=== PATIENT | female | born 1970 | race Caucasian/White ===

== ENCOUNTER 2025-04-01 11:48 | Inpatient (IN) | payer MEDICARE, SELFPAY ==
[2025-04-01 12:22] LABS: #Basophils 0.03 10x3/uL (0.0-0.2); #Eosinophils 0.11 10x3/uL (0.0-0.5); #Monocytes 0.66 10x3/uL (0.0-1.1); #Neutrophils 5.68 10x3/uL (1.5-8.4); %Basophils 0.3 % (0.0-2.0); %Eosinophils 1.2 % (0.0-6.0); %Lymphocytes 28.2 % (18.0-47.0); %Monocytes 7.3 % (0.0-10.0); %Neutrophils 62.7 % (40.0-75.0); Hematocrit 42.7 % (34.9-44.5); Hemoglobin 13.6 g/dL (12.0-15.5); Mean Corpuscular Hemoglobin 27.4 pg (27.0-33.0); Mean Corpuscular Volume 85.9 fL (81.6-98.3); Platelet Count 308 10x3/uL (150-450); Red Blood Cell (RBC) Count 4.97 10x6/uL (3.90-5.03); White Blood Cell (WBC) Count 9.07 10x3/uL (3.5-10.5)
[2025-04-01 12:43] LABS: Troponin I 0.031 ng/mL (< 0.028)
[2025-04-01 12:46] LABS: ALT (SGPT) 45 U/L (Less than 34); AST (SGOT) 44 U/L (11-34); Albumin 3.7 g/dL (3.1-4.5); Alkaline Phosphatase 107 U/L (40-110); Anion Gap 13 mmol/L (10-20); BUN (Urea Nitrogen) 16 mg/dL (9.8-20.1); Bilirubin, Total 0.3 mg/dL (0.3-1.2); Calc. Creatinine Clearance 0 mL/min (70-130); Calcium 8.9 mg/dL (7.8-10.44); Carbon Dioxide 25 mmol/L (22-29); Chloride 109 mmol/L (98-107); Globulin 3.4 g/dL (2.4-3.5); Glucose 101 mg/dL (70-105); Lipase 33 U/L (8-78); Potassium 3.9 mmol/L (3.5-5.1); Sodium 143 mmol/L (136-145)
[2025-04-01] MEDS ORDERED: Furosemide 40 MG (4 mL) VIAL ONE (13:57)
[2025-04-01] MEDS ORDERED: Calcium Carbonate 500 MG ChewTAB PO PRN (14:26)
[2025-04-01] MEDS ORDERED: Melatonin 3 MG TAB PO PRN (14:26)
[2025-04-01] MEDS ORDERED: Ondansetron PF 4 MG/2 ML Vial IVP PRN (14:26)
[2025-04-01] MEDS ORDERED: Senokot S 8.6-50 MG TAB PO PRN (14:26)
[2025-04-01] MEDS ORDERED: Acetaminophen 325 MG TAB PO PRN (14:26)
[2025-04-01] MEDS ORDERED: Bisacodyl 10 MG SUPP PR PRN (14:26)
[2025-04-01] MEDS: Enoxaparin 40 MG (0.4 mL) SYRINGE SC SCH (15:19)
[2025-04-01 15:36] LABS: Troponin I 0.042 ng/mL (< 0.028)
[2025-04-01 19:07] LABS: Troponin I 0.040 ng/mL (< 0.028)
[2025-04-01 19:14] VITALS: BMI 39.1
[2025-04-01] MEDS: Furosemide 40 MG (4 mL) VIAL SLOW IVP SCH (21:35)
[2025-04-02 04:15] LABS: #Basophils 0.03 10x3/uL (0.0-0.2); #Eosinophils 0.14 10x3/uL (0.0-0.5); #Monocytes 0.74 10x3/uL (0.0-1.1); #Neutrophils 5.64 10x3/uL (1.5-8.4); %Basophils 0.3 % (0.0-2.0); %Eosinophils 1.6 % (0.0-6.0); %Lymphocytes 24.7 % (18.0-47.0); %Monocytes 8.5 % (0.0-10.0); %Neutrophils 64.7 % (40.0-75.0); Hematocrit 43.4 % (34.9-44.5); Hemoglobin 13.9 g/dL (12.0-15.5); Mean Corpuscular Hemoglobin 27.5 pg (27.0-33.0); Mean Corpuscular Volume 85.9 fL (81.6-98.3); Platelet Count 320 10x3/uL (150-450); Red Blood Cell (RBC) Count 5.05 10x6/uL (3.90-5.03); White Blood Cell (WBC) Count 8.73 10x3/uL (3.5-10.5)
[2025-04-02 04:28] LABS: Anion Gap 15 mmol/L (10-20); BUN (Urea Nitrogen) 19 mg/dL (9.8-20.1); Calc. Creatinine Clearance 161 mL/min (70-130); Calcium 9.3 mg/dL (7.8-10.44); Carbon Dioxide 27 mmol/L (22-29); Chloride 104 mmol/L (98-107); Glucose 102 mg/dL (70-105); Magnesium 1.9 mg/dL (1.6-2.6); Potassium 4.1 mmol/L (3.5-5.1); Sodium 142 mmol/L (136-145)
[2025-04-02] MEDS: Cyclobenzaprine 10 MG TAB PO SCH (04:52)
[2025-04-02] MEDS: Furosemide 40 MG (4 mL) VIAL SLOW IVP SCH (05:52)
[2025-04-02] MEDS: Enoxaparin 40 MG (0.4 mL) SYRINGE SC SCH (08:37)
[2025-04-02 12:05] VITALS: BP 113/73; TEMP 98.4
== END 2025-04-02 15:15 | disposition home or self-care (01) | DRG 291 ==
LOC: CSHERS 11:48 → CSHERHOLD 14:21 → CSHTELE 17:58
PROVIDERS: ADMIT Internal Medicine; ATTEND Internal Medicine
DX: I11.0 Hypertensive heart disease with heart failure (principal); I50.23 Acute on chronic systolic (congestive) heart failure; F41.9 Anxiety disorder, unspecified; F12.10 Cannabis abuse, uncomplicated; F17.210 Nicotine dependence, cigarettes, uncomplicated; I16.0 Hypertensive urgency; I42.8 Other cardiomyopathies; E78.5 Hyperlipidemia, unspecified; R73.03 Prediabetes; I5A Non-ischemic myocardial injury (non-traumatic); Z91.148 Patient's other noncompliance with medication regimen for other reason; Z98.890 Other specified postprocedural states; Z90.710 Acquired absence of both cervix and uterus; Z98.51 Tubal ligation status; Z88.0 Allergy status to penicillin
CPT/HCPCS: 36415; 71045; 80048; 80053; 83690; 83735; 83880; 84484; 85025; 93005; 94760; 94762; 96374; J1940